=== PATIENT | male | born 1945 | race Caucasian/White ===

== ENCOUNTER 2017-07-07 10:25 | Observation (INO) | payer MEDICARE, OTHER ==
[2017-07-07 10:55] LABS: BASOPHILS % (AUTO) 0.4 % (0.0-5.0); EOSINOPHILS % (AUTO) 1.3 % (0.0-8.0); HEMATOCRIT 36.2 % (42-54); LYMPHOCYTES % (AUTO) 5.3 % (21.0-51.0); MEAN CORPUSCULAR HGB CONC 34.3 g/dL (32.0-36.0); MEAN CORPUSCULAR VOLUME 81.6 fL (79-99); MONOCYTES % (AUTO) 7.3 % (3.0-13.0); NEUTROPHILS % (AUTO) 85.7 % (40.0-77.0); PLATELET COUNT (AUTO) 187 K/uL (130-400); RED BLOOD CELL COUNT(AUTO) 4.43 MIL/uL (4.50-6.20); RED CELL DISTRIBUTION WIDTH 14.3 % (11.0-15.5); WHITE BLOOD COUNT (AUTO) 9.8 K/uL (4.8-10.8)
[2017-07-07 11:03] LABS: CREATININE 1.1 mg/dL (0.5-1.5); POTASSIUM 3.9 mmol/L (3.5-5.1)
[2017-07-07 11:03] LABS: RAPID GROUP A STREP NEGATIVE (NEGATIVE)
[2017-07-07 11:08] LABS: ALBUMIN 3.7 g/dL (3.5-5.0); BILIRUBIN,TOTAL 0.5 mg/dL (0.2-1.0); TOTAL PROTEIN, SERUM 7.2 g/dL (6.0-8.3)
[2017-07-07] MEDS ORDERED: METHYLPREDNISOLONE SOD SUCC 125MG/2ML VIAL ONE (11:17)
[2017-07-07] MEDS ORDERED: ACETAMINOPHEN-CODEINE ELIXIR 5 ML UDCUP ONE (11:17)
[2017-07-07 11:20] LABS: B-TYPE NATRIURETIC PEPTIDE 300 pg/mL (0-100)
[2017-07-07 11:35] LABS: INR 1.02 (0.85-1.15); PARTIAL THROMBOPLASTIN TIME 26.4 SEC (26.3-35.5); PROTHROMBIN TIME 10.7 SEC (9.6-11.6)
[2017-07-07] MEDS ORDERED: IPRATROPIUM/ALBUTEROL SULFATE 3 ML SOLUTION IH ONE (11:42)
[2017-07-07] MEDS ORDERED: ACETAMINOPHEN 325 MG TAB PO PRN ×2 (14:45)
[2017-07-07] MEDS ORDERED: ONDANSETRON HCL 4 MG/2 ML VIAL IV PRN (14:45)
[2017-07-07] MEDS ORDERED: GUAIFENESIN-DM 200/20 MG 10 ML PO PRN (14:45)
[2017-07-07] MEDS ORDERED: LACTULOSE 20 GM/30 ML UDCUP PO PRN (14:45)
[2017-07-07] MEDS ORDERED: ASPIRIN 325 MG TABLET ONE (14:58)
[2017-07-07] MEDS ORDERED: ENOXAPARIN SODIUM 40 MG/0.4 ML SYRINGE SQ ONE (15:34)
[2017-07-07] MEDS ORDERED: MULT-1258 PO (16:39)
[2017-07-07] MEDS ORDERED: EZET10TA26 PO (16:39)
[2017-07-07] MEDS ORDERED: AMLO10TA2 PO (16:39)
[2017-07-07] MEDS ORDERED: LOSA50TA37 PO (16:39)
[2017-07-07] MEDS ORDERED: METO-409 PO (16:39)
[2017-07-07] MEDS ORDERED: PRAS10TA9 PO (16:39)
[2017-07-07] MEDS ORDERED: ASPI-555 PO (16:39)
[2017-07-07] MEDS: IPRATROPIUM/ALBUTEROL SULFATE 3 ML SOLUTION IH SCH ×2 (17:21→23:44)
[2017-07-07 19:27] LABS: CREATINE KINASE MB 1.3 ng/mL (0.5-3.6); TROPONIN I 0.4 ng/mL (0.00-0.06)
[2017-07-07 19:29] VITALS: BP 137/82
[2017-07-07] MEDS: FAMOTIDINE/PF 20 MG/2 ML VIAL IV SCH (20:39)
[2017-07-07] MEDS ORDERED: DEXTROSE 50%-WATER 50 ML DISP.SYRIN IV PRN (22:30)
[2017-07-07] MEDS ORDERED: GLUCAGON 1MG KIT 1 MG ML IM PRN (22:30)
[2017-07-07 23:56] VITALS: BP 124/71
[2017-07-08] MEDS ORDERED: LEVOFLOXACIN 500 MG/D5W 100 ML 100 ML IV SCH (00:30)
[2017-07-08 00:58] LABS: CREATINE KINASE MB 1.8 ng/mL (0.5-3.6); TROPONIN I 0.37 ng/mL (0.00-0.06)
[2017-07-08] MEDS ORDERED: INSULIN HUMULIN R 100 UNIT/ML 3ML ONE (01:11)
[2017-07-08 04:02] VITALS: BP 111/72
[2017-07-08] MEDS: INSULIN HUMULIN R 100 UNIT/ML 3ML SQ SCH ×2 (06:40→11:30)
[2017-07-08] MEDS: NITROGLYCERIN 1GM/1 INCH PACKET TD SCH ×2 (06:45→08:18)
[2017-07-08] MEDS: IPRATROPIUM/ALBUTEROL SULFATE 3 ML SOLUTION IH SCH ×2 (06:53→11:34)
[2017-07-08 07:20] LABS: CREATINE KINASE MB 1.5 ng/mL (0.5-3.6); TROPONIN I 0.38 ng/mL (0.00-0.06)
[2017-07-08 08:00] VITALS: BP 113/68
[2017-07-08] MEDS: FAMOTIDINE/PF 20 MG/2 ML VIAL IV SCH (08:18)
[2017-07-08] MEDS ORDERED: IOPAMIDOL-370 75 ML VIAL IV ONE (08:45)
[2017-07-08] MEDS ORDERED: ENOXAPARIN SODIUM 40 MG/0.4 ML SYRINGE SQ SCH (09:00)
[2017-07-08] MEDS ORDERED: OSELTAMIVIR PHOSPHATE 75 MG CAP PO SCH (09:00)
[2017-07-08] MEDS ORDERED: METOPROLOL TARTRATE 50 MG TAB PO SCH (09:00)
[2017-07-08] MEDS ORDERED: BENZONATATE 100 MG CAPSULE PO SCH (09:00)
[2017-07-08] MEDS ORDERED: ASPIRIN 325 MG TABLET PO SCH (09:00)
[2017-07-08] MEDS ORDERED: OSEL75 PO (10:02)
[2017-07-08] MEDS ORDERED: AZIT500T4 PO (10:02)
[2017-07-08 12:07] VITALS: BP 117/65
== END 2017-07-08 12:20 | disposition home or self-care (01) ==
LOC: EDH 10:25 → EDHIP 14:43 → 2AH 16:16
PROVIDERS: ADMIT Family Medicine; ATTEND Family Medicine
DX: J20.9 Acute bronchitis, unspecified (principal); J06.9 Acute upper respiratory infection, unspecified; I25.10 Atherosclerotic heart disease of native coronary artery without angina pectoris; E11.9 Type 2 diabetes mellitus without complications; E78.5 Hyperlipidemia, unspecified; I10 Essential (primary) hypertension; I25.2 Old myocardial infarction; Z88.5 Allergy status to narcotic agent; Z95.5 Presence of coronary angioplasty implant and graft; Z82.49 Family history of ischemic heart disease and other diseases of the circulatory system
CPT/HCPCS: 36415 ×2; 71045; 71275; 80053; 82550 ×3; 82553 ×3; 82948 ×3; 83605; 83874 ×3; 83880; 84484 ×6; 85025; 85378; 85610; 85730; 87804 ×2; 87880; 93005 ×2; 93971; 94640 ×5; 94664; 96365; 96366; 96372; 96375; 96376; 99285; G0378 ×22; J1650 ×2; J1815; J1956; J2930; J3490 ×2; Q9967

== ENCOUNTER 2020-09-07 12:16 | Inpatient (IN) | payer OTHER, MEDICARE ==
[~2020-09-07] VITALS: Ht 182.9 cm; Wt 72.1 kg
[~2020-09-07 12:16] MED LIST: AMLO-258 PO; ASPI-556 PO; AZIT500T4 PO; EZET10TA48 PO; LOSA50TA64 PO; METO-409 PO; MULT-1258 PO; OSEL75 PO; PRAS10TA9 PO
[2020-09-07] MEDS ORDERED: ASPIRIN 325 MG TABLET ONE (12:30)
[2020-09-07] MEDS ORDERED: NITROGLYCERIN 1GM OINT 1 INCH/1GM TD ONE ×2 (12:30→23:25)
[2020-09-07] MEDS ORDERED: NITROGLYCERIN 0.4 MG SL TAB SL ONE (12:36)
[2020-09-07] MEDS ORDERED: ONDANSETRON 4MG INJ ONE (12:45)
[2020-09-07] MEDS ORDERED: ACETAMINOPHEN 500 MG TABLET ONE (12:45)
[2020-09-07 12:51] LABS: BASOPHILS % (AUTO) 0.3 % (0.0-5.0); EOSINOPHILS % (AUTO) 0.1 % (0.0-8.0); HEMATOCRIT 44.4 % (42-54); LYMPHOCYTES % (AUTO) 11.5 % (21.0-51.0); MEAN CORPUSCULAR HEMOGLOBIN 30.1 pg (27.0-33.0); MEAN CORPUSCULAR HGB CONC 33.3 g/dL (32.0-36.0); MEAN CORPUSCULAR VOLUME 90.4 fL (79-99); MONOCYTES % (AUTO) 6.4 % (3.0-13.0); NEUTROPHILS % (AUTO) 81.3 % (40.0-77.0); PLATELET COUNT (AUTO) 174 K/uL (130-400); RED BLOOD CELL COUNT(AUTO) 4.91 MIL/uL (4.50-6.20); RED CELL DISTRIBUTION WIDTH 14.1 % (11.0-15.5); WHITE BLOOD COUNT (AUTO) 10.9 K/uL (4.8-10.8)
[2020-09-07 12:54] LABS: CREATININE 1.4 mg/dL (0.5-1.5); POTASSIUM 4.3 mmol/L (3.5-5.1)
[2020-09-07 12:58] LABS: BILIRUBIN,TOTAL 0.6 mg/dL (0.2-1.0); TOTAL PROTEIN, SERUM 7.7 g/dL (6.0-8.3)
[2020-09-07 13:00] LABS: B-TYPE NATRIURETIC PEPTIDE 631 pg/mL (0-100)
[2020-09-07 13:19] LABS: INR 1.06 (0.85-1.15); PARTIAL THROMBOPLASTIN TIME 27.1 SEC (26.3-35.5)
[2020-09-07] MEDS ORDERED: CLOPIDOGREL 300MG TAB ONE (14:46)
[2020-09-07] MEDS ORDERED: NITROGLYCERIN 0.4 MG SL TAB SL PRN (20:45)
[2020-09-07] MEDS ORDERED: ONDANSETRON 4MG INJ IV PRN (20:45)
[2020-09-07] MEDS ORDERED: ACETAMINOPHEN 325 MG TAB PO PRN (20:45)
[2020-09-07] MEDS: FAMOTIDINE 20MG TAB PO SCH (21:00)
[2020-09-07] MEDS: ATORVASTATIN 40 MG TABLET PO SCH (21:00)
[2020-09-07] MEDS ORDERED: METOPROLOL TARTRATE 25 MG TAB PO SCH (21:00)
[2020-09-07 21:24] LABS: APPEARANCE,URINE Clear (CLEAR); BILIRUBIN,URINE Negative (NEGATIVE); COLOR,URINE Yellow (YELLOW); GLUCOSE, URINE (UA) >=1000 mg/dL (NEGATIVE); KETONES,URINE 40 mg/dL (NEGATIVE); LEUKOCYTE ESTERASE ,URINE Negative (NEGATIVE); NITRATE,URINE Negative (NEGATIVE); OCCULT BLOOD,URINE Negative (NEGATIVE); PROTEIN,URINE Negative (NEGATIVE); UROBILINOGEN,URINE 0.2 mg/dL (0.2-1.0)
[2020-09-07] MEDS ORDERED: ATORVASTATIN 40 MG TABLET ONE (21:26)
[2020-09-07] MEDS ORDERED: METOPROLOL TARTRATE 25 MG TAB ONE ×2 (21:26→21:32)
[2020-09-07] MEDS ORDERED: FAMOTIDINE 20MG VIAL IV ONE (21:27)
[2020-09-07 21:33] LABS: BACTERIA,URINE Rare /HPF (None Seen); MUCUS,URINE Few LPF (None Seen); RBC,URINE 0-1 /HPF (0-1); SQUAMOUS EPITHELIAL CELL,UR Rare /HPF (0-2)
[2020-09-07] MEDS ORDERED: FAMOTIDINE 20MG TAB ONE (21:34)
[2020-09-07] MEDS ORDERED: ENOXAPARIN SODIUM 80 MG/0.8 ML SQ ONE (23:25)
[2020-09-07] MEDS ORDERED: ACETAMINOPHEN 325 MG TAB ONE (23:59)
[2020-09-08 03:04] VITALS: BP 118/64
[2020-09-08 05:21] LABS: BASOPHILS % (AUTO) 0.3 % (0.0-5.0); EOSINOPHILS % (AUTO) 0.8 % (0.0-8.0); HEMATOCRIT 40.7 % (42-54); LYMPHOCYTES % (AUTO) 13.6 % (21.0-51.0); MEAN CORPUSCULAR HEMOGLOBIN 29.3 pg (27.0-33.0); MEAN CORPUSCULAR HGB CONC 32.4 g/dL (32.0-36.0); MEAN CORPUSCULAR VOLUME 90.2 fL (79-99); MONOCYTES % (AUTO) 9.8 % (3.0-13.0); PLATELET COUNT (AUTO) 124 K/uL (130-400); RED BLOOD CELL COUNT(AUTO) 4.51 MIL/uL (4.50-6.20); RED CELL DISTRIBUTION WIDTH 14.1 % (11.0-15.5); WHITE BLOOD COUNT (AUTO) 7.4 K/uL (4.8-10.8)
[2020-09-08 05:36] LABS: ALBUMIN 3.3 g/dL (3.5-5.0); BILIRUBIN,TOTAL 0.4 mg/dL (0.2-1.0); CREATININE 1.1 mg/dL (0.5-1.5); MAGNESIUM 1.8 mg/dL (1.80-2.40); POTASSIUM 4.5 mmol/L (3.5-5.1); TOTAL PROTEIN, SERUM 6.7 g/dL (6.0-8.3)
[2020-09-08] MEDS ORDERED: EMPA25TA PO (06:28)
[2020-09-08] MEDS ORDERED: SAXA5TAB PO (06:28)
[2020-09-08] MEDS ORDERED: GABA-529 PO (06:28)
[2020-09-08] MEDS: ACETAMINOPHEN 325 MG TAB PO PRN ×2 (06:35→14:01)
[2020-09-08] MEDS ORDERED: [UNRECOGNIZED DRUG - CODE] PO (06:41)
[2020-09-08] MEDS ORDERED: METF-890 PO (06:41)
[2020-09-08] MEDS ORDERED: SEMA1PEN3 SQ (06:41)
[2020-09-08] MEDS ORDERED: SPIR25TA PO (06:41)
[2020-09-08] MEDS ORDERED: FURO40TA5 PO (06:41)
[2020-09-08] MEDS ORDERED: OMEP20CA12 PO (06:41)
[2020-09-08] MEDS ORDERED: METO200T49 PO (06:41)
[2020-09-08 08:00] VITALS: BP 109/67
[2020-09-08] MEDS ORDERED: OZEMPIC 0.5 MG SQ SCH (09:00)
[2020-09-08] MEDS ORDERED: NIACINAMIDE 500 MG PO SCH (09:00)
[2020-09-08] MEDS ORDERED: AMLODIPINE 5 MG TAB PO SCH (09:00)
[2020-09-08] MEDS: JARDIANCE 25 MG PO SCH (09:00)
[2020-09-08] MEDS: ONGLYZA 5 MG PO SCH (09:00)
[2020-09-08] MEDS ORDERED: ENOXAPARIN SODIUM 1 MG/KG SQ SCH (09:00)
[2020-09-08] MEDS: SPIRONOLACTONE 25 MG TAB PO SCH (10:02)
[2020-09-08] MEDS: METOPROLOL SUCCINATE 50 MG TAB.SR.24H PO SCH (10:02)
[2020-09-08] MEDS: MULTIVITAMIN WITH MINERALS TABLET PO SCH (10:02)
[2020-09-08] MEDS: ENOXAPARIN SODIUM 80 MG/0.8 ML SQ SCH ×2 (10:02→20:22)
[2020-09-08] MEDS: PANTOPRAZOLE 40 MG TAB DR PO SCH (10:07)
[2020-09-08] MEDS: EZETIMIBE 10 MG TAB PO SCH (10:07)
[2020-09-08] MEDS: CLOPIDOGREL 75MG TAB PO SCH (10:07)
[2020-09-08] MEDS: ASPIRIN 81 MG EC TAB PO SCH (10:08)
[2020-09-08 11:19] VITALS: BP 117/72
[2020-09-08] MEDS: FUROSEMIDE 40 MG TABLET PO SCH (13:57)
[2020-09-08 16:08] VITALS: BP 130/83
[2020-09-08] MEDS ORDERED: REGADENOSON 0.4 MG/5 ML PF SYG IVP SCH (18:15)
[2020-09-08 20:02] VITALS: BP 117/75
[2020-09-08] MEDS: ATORVASTATIN 40 MG TABLET PO SCH (20:20)
[2020-09-08] MEDS: GABAPENTIN 100 MG CAPSULE PO SCH (20:20)
[2020-09-08] MEDS: FAMOTIDINE 20MG TAB PO SCH (20:20)
[2020-09-08] MEDS ORDERED: ASPIRIN 81 MG EC TAB PO SCH (21:00)
[2020-09-08 23:54] VITALS: BP 118/71
[2020-09-09 03:41] VITALS: BP 95/66
[2020-09-09 04:51] LABS: BASOPHILS % (AUTO) 0.5 % (0.0-5.0); EOSINOPHILS % (AUTO) 1.3 % (0.0-8.0); HEMATOCRIT 44.8 % (42-54); LYMPHOCYTES % (AUTO) 25.4 % (21.0-51.0); MEAN CORPUSCULAR HEMOGLOBIN 29.1 pg (27.0-33.0); MEAN CORPUSCULAR HGB CONC 32.6 g/dL (32.0-36.0); MEAN CORPUSCULAR VOLUME 89.4 fL (79-99); MONOCYTES % (AUTO) 9.8 % (3.0-13.0); NEUTROPHILS % (AUTO) 62.6 % (40.0-77.0); PLATELET COUNT (AUTO) 154 K/uL (130-400); RED BLOOD CELL COUNT(AUTO) 5.01 MIL/uL (4.50-6.20); WHITE BLOOD COUNT (AUTO) 7.9 K/uL (4.8-10.8)
[2020-09-09 05:00] LABS: CREATININE 1.3 mg/dL (0.5-1.5); POTASSIUM 3.9 mmol/L (3.5-5.1)
[2020-09-09] MEDS: ACETAMINOPHEN 325 MG TAB PO PRN ×3 (06:15→19:47)
[2020-09-09 08:00] VITALS: BP 105/64
[2020-09-09] MEDS: ONGLYZA 5 MG PO SCH (09:00)
[2020-09-09] MEDS ORDERED: ENOXAPARIN SODIUM 1 MG/KG SQ SCH (09:00)
[2020-09-09] MEDS: JARDIANCE 25 MG PO SCH (09:00)
[2020-09-09] MEDS: LOSARTAN 50 MG TABLET PO SCH (09:00)
[2020-09-09] MEDS: SPIRONOLACTONE 25 MG TAB PO SCH (13:13)
[2020-09-09] MEDS: FUROSEMIDE 40 MG TABLET PO SCH (13:14)
[2020-09-09] MEDS: ASPIRIN 81 MG EC TAB PO SCH (13:14)
[2020-09-09] MEDS: EZETIMIBE 10 MG TAB PO SCH (13:14)
[2020-09-09] MEDS: PANTOPRAZOLE 40 MG TAB DR PO SCH (13:15)
[2020-09-09] MEDS: CLOPIDOGREL 75MG TAB PO SCH (13:15)
[2020-09-09] MEDS: METOPROLOL SUCCINATE 50 MG TAB.SR.24H PO SCH (13:15)
[2020-09-09] MEDS: MULTIVITAMIN WITH MINERALS TABLET PO SCH (13:15)
[2020-09-09 13:33] VITALS: BP 120/69
[2020-09-09 15:51] VITALS: BP 109/76
[2020-09-09] MEDS: ATORVASTATIN 40 MG TABLET PO SCH (19:45)
[2020-09-09] MEDS: FAMOTIDINE 20MG TAB PO SCH (19:45)
[2020-09-09] MEDS: GABAPENTIN 100 MG CAPSULE PO SCH (19:45)
[2020-09-09 20:12] VITALS: BP 125/75
[2020-09-09 23:35] VITALS: BP 115/72
[2020-09-10 04:27] VITALS: BP 157/82
[2020-09-10 07:00] VITALS: BP 131/82
[2020-09-10] MEDS ORDERED: LOSA50TA2 PO (07:59)
[2020-09-10] MEDS ORDERED: CLOP75TA14 PO (07:59)
[2020-09-10] MEDS ORDERED: APIX5TAB PO (07:59)
[2020-09-10] MEDS: EZETIMIBE 10 MG TAB PO SCH (08:48)
[2020-09-10] MEDS: ASPIRIN 81 MG EC TAB PO SCH (08:48)
[2020-09-10] MEDS: METOPROLOL SUCCINATE 50 MG TAB.SR.24H PO SCH (08:48)
[2020-09-10] MEDS: PANTOPRAZOLE 40 MG TAB DR PO SCH (08:48)
[2020-09-10] MEDS: SPIRONOLACTONE 25 MG TAB PO SCH (08:49)
[2020-09-10] MEDS: MULTIVITAMIN WITH MINERALS TABLET PO SCH (08:49)
[2020-09-10] MEDS: FUROSEMIDE 40 MG TABLET PO SCH (08:49)
[2020-09-10] MEDS: LOSARTAN 50 MG TABLET PO SCH (08:49)
[2020-09-10] MEDS: CLOPIDOGREL 75MG TAB PO SCH (08:49)
[2020-09-10] MEDS: JARDIANCE 25 MG PO SCH (08:49)
[2020-09-10] MEDS: ONGLYZA 5 MG PO SCH (08:50)
[2020-09-10 11:00] VITALS: BP 108/70
[2021-05-12] MEDS ORDERED: METO200T49 PO (11:14)
[2021-05-12] MEDS ORDERED: OMEP20TA2 PO (11:14)
[2021-05-12] MEDS ORDERED: EZET10TA13 PO (11:14)
[2021-05-12] MEDS ORDERED: LOSA25TA2 PO (11:14)
[2021-05-12] MEDS ORDERED: SEMA1PEN3 SQ (11:14)
[2021-05-12] MEDS ORDERED: EMPA25TA PO (11:14)
== END 2020-09-10 13:54 | disposition home or self-care (01) | DRG 281 ==
LOC: EDH 12:16 → EDHIP 20:42 → 3BH 09-08 00:02 → 4DH 09-08 02:17
PROVIDERS: ADMIT Internal Medicine; ATTEND Internal Medicine
DX: I21.4 Non-ST elevation (NSTEMI) myocardial infarction (principal); I48.92 Unspecified atrial flutter; I25.5 Ischemic cardiomyopathy; N18.31 Chronic kidney disease, stage 3a; E78.5 Hyperlipidemia, unspecified; I25.10 Atherosclerotic heart disease of native coronary artery without angina pectoris; E11.22 Type 2 diabetes mellitus with diabetic chronic kidney disease; I12.9 Hypertensive chronic kidney disease with stage 1 through stage 4 chronic kidney disease, or unspecified chronic kidney disease; I45.10 Unspecified right bundle-branch block; Z20.822 Contact with and (suspected) exposure to COVID-19; I25.2 Old myocardial infarction; Z79.01 Long term (current) use of anticoagulants; Z88.5 Allergy status to narcotic agent; Z95.1 Presence of aortocoronary bypass graft; Z95.5 Presence of coronary angioplasty implant and graft; Z83.3 Family history of diabetes mellitus; Z80.9 Family history of malignant neoplasm, unspecified; Z82.49 Family history of ischemic heart disease and other diseases of the circulatory system
CPT/HCPCS: 36415; 71045; 78452; 80048; 80053; 80061; 81001; 82550; 82948; 83735; 83880; 84484; 85025; 85610; 85730; 87426; 93005; 93017; 93306; 93356; 96374; A9500; G0378; J1650; J2405; J2785; J3490; U0003

== ENCOUNTER 2021-05-13 07:11 | Observation (INO) | payer OTHER ==
[2021-05-11 11:20] LABS: BASOPHILS % (AUTO) 0.6 % (0.0-5.0); EOSINOPHILS % (AUTO) 0.9 % (0.0-8.0); HEMATOCRIT 43.5 % (42-54); LYMPHOCYTES % (AUTO) 20.9 % (21.0-51.0); MEAN CORPUSCULAR HEMOGLOBIN 31.9 pg (27.0-33.0); MEAN CORPUSCULAR HGB CONC 33.6 g/dL (32.0-36.0); MONOCYTES % (AUTO) 5.6 % (3.0-13.0); NEUTROPHILS % (AUTO) 71.8 % (40.0-77.0); PLATELET COUNT (AUTO) 140 K/uL (130-400); RED BLOOD CELL COUNT(AUTO) 4.58 MIL/uL (4.50-6.20); RED CELL DISTRIBUTION WIDTH 14.5 % (11.0-15.5); WHITE BLOOD COUNT (AUTO) 8.2 K/uL (4.8-10.8)
[2021-05-11 11:27] LABS: CREATININE 1.7 mg/dL (0.5-1.5); POTASSIUM 5.1 mmol/L (3.5-5.1)
[2021-05-11 12:21] LABS: INR 1.09 (0.85-1.15); PROTHROMBIN TIME 11.8 SEC (9.6-11.6)
[2021-05-11 12:22] LABS: PARTIAL THROMBOPLASTIN TIME 27.8 SEC (26.3-35.5)
[~2021-05-13] VITALS: Ht 182.9 cm; Wt 72.3 kg
[~2021-05-13 07:11] MED LIST changes: -AMLO-258 PO; -AZIT500T4 PO; +EMPA25TA PO; +EZET10TA13 PO; -EZET10TA48 PO; +LOSA25TA2 PO; -LOSA50TA64 PO; -METO-409 PO; +METO200T49 PO; -MULT-1258 PO; +OMEP20TA2 PO; -OSEL75 PO; -PRAS10TA9 PO; +SEMA1PEN3 SQ
[2021-05-13] MEDS ORDERED: 0.9%NACL 1000ML 1,000 ML IV ONE (08:15)
[2021-05-13 08:18] VITALS: BP 126/71
[2021-05-13] MEDS ORDERED: BUPIVACAINE/PF 0.25% 30ML VIAL IJ ONE (10:43)
[2021-05-13] MEDS ORDERED: CEFAZOLIN SODIUM 1 GM VIAL ONE (10:43)
[2021-05-13] MEDS ORDERED: LIDOCAINE HCL 1% 20 ML VIAL ONE (10:43)
[2021-05-13] MEDS ORDERED: IODIXANOL 320 MG/ML 100 ML VIAL ONE (11:21)
[2021-05-13] MEDS ORDERED: MIDAZOLAM HCL 1 MG/ML 2ML VIAL ONE ×4 (11:42→12:39)
[2021-05-13] MEDS ORDERED: MEPERIDINE-PF 25 MG/ML SYG ONE ×4 (11:42→12:41)
[2021-05-13] MEDS ORDERED: SEMAGLUTIDE SQ SCH (14:00)
[2021-05-13 14:30] VITALS: BP 109/61
[2021-05-13 14:45] VITALS: BP 136/83
[2021-05-13 16:00] VITALS: BP 115/70
[2021-05-13] MEDS: TRAMADOL HCL 50 MG TABLET PO PRN (18:19)
[2021-05-13 20:00] VITALS: BP 123/72
[2021-05-13] MEDS: PANTOPRAZOLE 40 MG TAB DR PO SCH (20:46)
[2021-05-13] MEDS ORDERED: ASPIRIN 81 MG EC TAB PO SCH (21:00)
[2021-05-13] MEDS ORDERED: NON-FORMULARY MEDICATION 1 EACH (Omeprazole Magnesium (Prilosec Otc) 20 MG) PO SCH (21:00)
[2021-05-14] VITALS: BP 120/69
[2021-05-14] MEDS: TRAMADOL HCL 50 MG TABLET PO PRN (02:06)
[2021-05-14 04:00] VITALS: BP 129/55
[2021-05-14 08:00] VITALS: BP 128/75
[2021-05-14] MEDS ORDERED: JARDIANCE 25MG PO SCH (09:00)
[2021-05-14] MEDS ORDERED: LOSARTAN 25 MG TABLET PO SCH (09:00)
[2021-05-14] MEDS ORDERED: NON-FORMULARY MEDICATION 1 EACH (Metoprolol Succinate 200 MG) PO SCH (09:00)
[2021-05-14] MEDS: PANTOPRAZOLE 40 MG TAB DR PO SCH (09:00)
[2021-05-14] MEDS ORDERED: NON-FORMULARY MEDICATION 1 EACH (Empagliflozin (Jardiance) 25 MG) PO SCH (09:00)
[2021-05-14] MEDS ORDERED: METOPROLOL SUCCINATE 50 MG TAB.SR.24H PO SCH (09:00)
[2021-05-14] MEDS ORDERED: EZETIMIBE 10 MG TAB PO SCH (09:00)
[2021-05-14 12:00] VITALS: BP 123/66
[2021-05-20] MEDS ORDERED: SEMAGLUTIDE SQ SCH (09:00)
== END 2021-05-14 12:30 | disposition home or self-care (01) ==
LOC: DAH 07:11 → DAHIP 07:12 → 4DH 14:56
PROVIDERS: ADMIT Internal Medicine; ATTEND Internal Medicine
DX: I25.5 Ischemic cardiomyopathy (principal); I11.0 Hypertensive heart disease with heart failure; I50.22 Chronic systolic (congestive) heart failure; I45.10 Unspecified right bundle-branch block; I25.10 Atherosclerotic heart disease of native coronary artery without angina pectoris; E11.49 Type 2 diabetes mellitus with other diabetic neurological complication; I48.91 Unspecified atrial fibrillation; I25.2 Old myocardial infarction; Z85.46 Personal history of malignant neoplasm of prostate; Z79.899 Other long term (current) drug therapy; Z95.5 Presence of coronary angioplasty implant and graft; Z95.1 Presence of aortocoronary bypass graft
CPT/HCPCS: 33225; 33249; 36415; 71045; 80048; 82948 ×6; 85025; 85610; 85730; 93005; A4215 ×2; A4216; A4221; A4222; A4223 ×3; A4606; A4663; C1769; C1882; C1895; C1896; C1900; G0378 ×22; J0690; J2175 ×3; J2250 ×4; J3490; J7030; Q9967; 99156; 99157

== ENCOUNTER 2021-08-26 22:41 | Inpatient (IN) | payer MEDICARE, OTHER ==
[~2021-08-26] VITALS: Ht 182.9 cm; Wt 71.0 kg
[~2021-08-26 22:41] MED LIST changes: -LOSA25TA2 PO
[2021-08-26] MEDS ORDERED: ASPIRIN 81MG CHEW TAB ONE (22:52)
[2021-08-26] MEDS ORDERED: ASPIRIN 81MG CHEW TAB PO ONE (23:00)
[2021-08-26 23:05] LABS: BASOPHILS % (AUTO) 0.7 % (0.0-5.0); EOSINOPHILS % (AUTO) 1.2 % (0.0-8.0); HEMATOCRIT 40.1 % (42-54); LYMPHOCYTES % (AUTO) 27.7 % (21.0-51.0); MEAN CORPUSCULAR HEMOGLOBIN 27.8 pg (27.0-33.0); MEAN CORPUSCULAR HGB CONC 31.4 g/dL (32.0-36.0); MEAN CORPUSCULAR VOLUME 88.5 fL (79-99); MONOCYTES % (AUTO) 6.6 % (3.0-13.0); NEUTROPHILS % (AUTO) 63.5 % (40.0-77.0); PLATELET COUNT (AUTO) 142 K/uL (130-400); RED BLOOD CELL COUNT(AUTO) 4.53 MIL/uL (4.50-6.20); RED CELL DISTRIBUTION WIDTH 13.6 % (11.0-15.5); WHITE BLOOD COUNT (AUTO) 7.5 K/uL (4.8-10.8)
[2021-08-26 23:15] LABS: CREATININE 1.3 mg/dL (0.5-1.5); POTASSIUM 3.7 mmol/L (3.5-5.1)
[2021-08-26 23:23] LABS: ALBUMIN 3.7 g/dL (3.5-5.0); BILIRUBIN,TOTAL 0.4 mg/dL (0.2-1.0); TOTAL PROTEIN, SERUM 6.8 g/dL (6.0-8.3)
[2021-08-27] MEDS ORDERED: IOHEXOL 350 MG/ML 100ML INFUS..BTL IV ONE (00:24)
[2021-08-27] MEDS ORDERED: FUROSEMIDE 40MG VIAL IV ONE (01:30)
[2021-08-27] MEDS ORDERED: ONDANSETRON 4MG INJ IV PRN (02:00)
[2021-08-27] MEDS: ACETAMINOPHEN 325 MG TAB PO PRN ×2 (02:59→18:42)
[2021-08-27 03:30] VITALS: BP 139/55
[2021-08-27 06:13] LABS: HEMOGLOBIN A1C 6.6 % (4.0-6.0)
[2021-08-27] MEDS: INSULIN HUMULIN R 100 UNIT/ML 3ML SQ SCH ×4 (06:32→22:16)
[2021-08-27 08:18] VITALS: BP 144/91
[2021-08-27] MEDS: ASPIRIN 81MG CHEW TAB PO SCH (09:18)
[2021-08-27] MEDS: FUROSEMIDE 40MG VIAL IVP SCH ×2 (09:18→22:05)
[2021-08-27] MEDS: FAMOTIDINE 20MG TAB PO SCH (09:18)
[2021-08-27] MEDS: HEPARIN 5,000 UNIT VIAL SQ SCH ×3 (09:29→22:06)
[2021-08-27] MEDS ORDERED: SPIR25TA6 PO (09:58)
[2021-08-27] MEDS ORDERED: [UNRECOGNIZED DRUG - CODE] PO (09:58)
[2021-08-27] MEDS: METOPROLOL TARTRATE 1 MG/ML 5ML VIAL IV SCH ×3 (10:27→10:47)
[2021-08-27 11:32] VITALS: BP 114/76
[2021-08-27 11:51] LABS: CREATININE 1.5 mg/dL (0.5-1.5); POTASSIUM 4.1 mmol/L (3.5-5.1)
[2021-08-27 15:58] VITALS: BP 118/69
[2021-08-27 20:00] VITALS: BP 133/90
[2021-08-27] MEDS: METOPROLOL SUCCINATE 50 MG TAB.SR.24H PO SCH (22:07)
[2021-08-28] VITALS: BP 103/63
[2021-08-28 04:00] VITALS: BP 114/70
[2021-08-28 04:51] LABS: BASOPHILS % (AUTO) 0.4 % (0.0-5.0); EOSINOPHILS % (AUTO) 1.2 % (0.0-8.0); HEMATOCRIT 39.6 % (42-54); LYMPHOCYTES % (AUTO) 19.5 % (21.0-51.0); MEAN CORPUSCULAR HEMOGLOBIN 27.6 pg (27.0-33.0); MEAN CORPUSCULAR HGB CONC 31.3 g/dL (32.0-36.0); MEAN CORPUSCULAR VOLUME 88.2 fL (79-99); MONOCYTES % (AUTO) 7.4 % (3.0-13.0); NEUTROPHILS % (AUTO) 71.2 % (40.0-77.0); PLATELET COUNT (AUTO) 147 K/uL (130-400); RED BLOOD CELL COUNT(AUTO) 4.49 MIL/uL (4.50-6.20); RED CELL DISTRIBUTION WIDTH 13.6 % (11.0-15.5); WHITE BLOOD COUNT (AUTO) 7.5 K/uL (4.8-10.8)
[2021-08-28 05:02] LABS: CREATININE 1.5 mg/dL (0.5-1.5); MAGNESIUM 1.9 mg/dL (1.80-2.40); PHOSPHORUS 3.9 mg/dL (2.5-4.9); POTASSIUM 3.1 mmol/L (3.5-5.1)
[2021-08-28 05:18] LABS: B-TYPE NATRIURETIC PEPTIDE 1800 pg/mL (0-100)
[2021-08-28] MEDS: INSULIN HUMULIN R 100 UNIT/ML 3ML SQ SCH (06:52)
[2021-08-28 08:16] VITALS: BP 140/73
[2021-08-28] MEDS ORDERED: FURO20TA6 PO (09:09)
[2021-08-28] MEDS ORDERED: METO-409 PO (09:09)
[2021-08-28] MEDS: FAMOTIDINE 20MG TAB PO SCH (09:43)
[2021-08-28] MEDS: ASPIRIN 81MG CHEW TAB PO SCH (09:43)
[2021-08-28] MEDS: METOPROLOL SUCCINATE 50 MG TAB.SR.24H PO SCH (09:43)
[2021-08-28] MEDS: FUROSEMIDE 40MG VIAL IVP SCH (09:44)
[2021-08-28] MEDS: HEPARIN 5,000 UNIT VIAL SQ SCH (09:45)
[2021-08-28] MEDS ORDERED: KCL 20 MEQ ERTAB PO SCH (10:00)
== END 2021-08-28 12:27 | disposition home or self-care (01) | DRG 291 ==
LOC: EDH 22:41 → EDHIP 08-27 01:52 → 4BH 08-27 03:12
PROVIDERS: ADMIT Hospitalist; ATTEND Hospitalist
DX: I11.0 Hypertensive heart disease with heart failure (principal); I50.43 Acute on chronic combined systolic (congestive) and diastolic (congestive) heart failure; D68.59 Other primary thrombophilia; I25.10 Atherosclerotic heart disease of native coronary artery without angina pectoris; I25.5 Ischemic cardiomyopathy; E11.42 Type 2 diabetes mellitus with diabetic polyneuropathy; I48.91 Unspecified atrial fibrillation; Z88.5 Allergy status to narcotic agent; Z79.82 Long term (current) use of aspirin; Z95.810 Presence of automatic (implantable) cardiac defibrillator; Z95.1 Presence of aortocoronary bypass graft; I25.2 Old myocardial infarction; Z85.46 Personal history of malignant neoplasm of prostate; Z95.5 Presence of coronary angioplasty implant and graft; Z95.0 Presence of cardiac pacemaker; Z98.49 Cataract extraction status, unspecified eye; Z88.8 Allergy status to other drugs, medicaments and biological substances; Z83.3 Family history of diabetes mellitus; Z80.9 Family history of malignant neoplasm, unspecified; Z82.49 Family history of ischemic heart disease and other diseases of the circulatory system
CPT/HCPCS: 36415; 71045; 71275; 80048; 80053; 82948; 83036; 83605; 83735; 83880; 84100; 84145; 84484; 85025; 85378; 87071; 87205; 93005; G0378; J1644; J1815; J1940; J3490; Q9967

== ENCOUNTER → 2022-06-28 | Outpatient (CLI) | payer MEDICARE ==
[~2022-06-28] MED LIST changes: +FURO20TA6 PO; +METO-409 PO; -METO200T49 PO; +[UNRECOGNIZED DRUG - CODE] PO
[2022-06-28 13:24] LABS: BASOPHILS % (AUTO) 0.8 % (0.0-5.0); EOSINOPHILS % (AUTO) 1.7 % (0.0-8.0); HEMATOCRIT 41.3 % (42-54); LYMPHOCYTES % (AUTO) 22.5 % (21.0-51.0); MEAN CORPUSCULAR HEMOGLOBIN 27.6 pg (27.0-33.0); MONOCYTES % (AUTO) 7.3 % (3.0-13.0); NEUTROPHILS % (AUTO) 67.3 % (40.0-77.0); PLATELET COUNT (AUTO) 160 K/uL (130-400); RED BLOOD CELL COUNT(AUTO) 4.49 MIL/uL (4.50-6.20); RED CELL DISTRIBUTION WIDTH 15.1 % (11.0-15.5); WHITE BLOOD COUNT (AUTO) 7.2 K/uL (4.8-10.8)
[2022-06-28 13:48] LABS: ALBUMIN 3.6 g/dL (3.5-5.0); CREATININE 1.5 mg/dL (0.5-1.5); POTASSIUM 3.5 mmol/L (3.5-5.1); TOTAL PROTEIN, SERUM 7.1 g/dL (6.0-8.3)
== END | disposition home or self-care (01) ==
LOC: LAB 09:21
PROVIDERS: ATTEND Internal Medicine Cardiovascular Disease
DX: I50.42 Chronic combined systolic (congestive) and diastolic (congestive) heart failure (principal); I25.110 Atherosclerotic heart disease of native coronary artery with unstable angina pectoris
CPT/HCPCS: 36415; 80053; 80061; 83880; 85025